=== PATIENT | female | born 1945 ===

== ENCOUNTER 2023-12-28 06:00 | Outpatient (RCR) | payer MEDICARE, OTHER, SELFPAY | END 2024-01-13 23:59 | disposition home or self-care (01) | LOC: GPT 06:00 | PROVIDERS: Visit Provider Nurse Practitioner | DX: R26.2 Difficulty in walking, not elsewhere classified (principal); R53.1 Weakness | CPT/HCPCS: 97110; 97162 ==

== ENCOUNTER 2024-01-14 06:00 | Outpatient (RCR) | payer MEDICARE, OTHER, SELFPAY | END 2024-02-13 23:59 | disposition home or self-care (01) | LOC: GPT 06:00 | PROVIDERS: Visit Provider Nurse Practitioner | DX: U09.9 Post COVID-19 condition, unspecified (principal) | CPT/HCPCS: 97110; 97164; 97530 ==

== ENCOUNTER 2024-02-14 06:00 | Outpatient (RCR) | payer MEDICARE, OTHER, SELFPAY | END 2024-03-14 23:59 | disposition home or self-care (01) | LOC: GPT 06:00 | PROVIDERS: Visit Provider Nurse Practitioner | DX: U09.9 Post COVID-19 condition, unspecified (principal) | CPT/HCPCS: 97110 ==

== ENCOUNTER 2024-03-15 06:00 | Outpatient (RCR) | payer MEDICARE, OTHER, SELFPAY | END 2024-04-14 23:59 | disposition home or self-care (01) | LOC: GPT 06:00 | PROVIDERS: Visit Provider Nurse Practitioner | DX: U09.9 Post COVID-19 condition, unspecified (principal) | CPT/HCPCS: 97110 ==

== ENCOUNTER 2024-04-15 06:00 | Outpatient (RCR) | payer MEDICARE, OTHER, SELFPAY | END 2024-05-14 23:59 | disposition home or self-care (01) | LOC: GPT 06:00 | PROVIDERS: Visit Provider Nurse Practitioner | DX: U09.9 Post COVID-19 condition, unspecified (principal) | CPT/HCPCS: 97110 ==

== ENCOUNTER 2024-05-15 06:00 | Outpatient (RCR) | payer MEDICARE, OTHER, SELFPAY | END 2024-06-14 23:59 | disposition home or self-care (01) | LOC: GPT 06:00 | PROVIDERS: Visit Provider Nurse Practitioner | DX: U09.9 Post COVID-19 condition, unspecified (principal) | CPT/HCPCS: 97110; 97164 ==